=== PATIENT | female | born 1995 | race Caucasian/White ===

== ENCOUNTER → 2023-11-27 12:20 | Outpatient (REF) | payer OTHER, SELFPAY | LOC: MRI 3T 12:20 | PROVIDERS: ATTENDING PHYSICIAN Internal Medicine Gastroenterology; FAMILY PHYSICIAN Internal Medicine | DX: K50.119 Crohn's disease of large intestine with unspecified complications (principal) | CPT/HCPCS: 72197; 74183; A9575 ==

== ENCOUNTER 2025-01-11 06:24 | Day surgery (SDC) | payer OTHER, SELFPAY | END 2025-01-11 08:32 | disposition home or self-care (01) | LOC: GI 06:24 | PROVIDERS: ATTENDING PHYSICIAN Internal Medicine | DX: K62.89 Other specified diseases of anus and rectum (principal); K50.80 Crohn's disease of both small and large intestine without complications | CPT/HCPCS: 45380; 88305 ==